=== PATIENT | female | born 1965 | race Caucasian/White ===

== ENCOUNTER 2021-02-27 06:15 | Day surgery (SDC) | payer BC, OTHER ==
[~2021-02-27 06:15] MED LIST: Morphine 8 MG, EPINEPHrine 0.3 MG, Cefuroxime 750 MG, Ketorolac 30 MG, Sodium Chloride ... PRN
--- NOTE | 2021-02-27 06:36 | PCM.PREANE ---
Preanesthetic Assessment - Procedure Proposed Procedure: Left total knee arthroplasty - Anesthesia/Transfusion/Family Hx Anesthesia History: Prior Anesthesia Without Reaction Family History of Anesthesia Reaction: No Transfusion History: No Prior Transfusion(s) - Review of Systems General: No Symptoms Pulmonary: No Symptoms Cardiovascular: No Symptoms Gastrointestinal: No Symptoms Neurological: No Symptoms - Physical Assessment NPO Status Date: 02/26/21 NPO Status Time: 00:00 Height: 1.7 m Weight: 85 kg ASA Class: 2 Mental Status: Alert & Oriented x3 Airway Class: Mallampati = 1 Dentition: Reports: Dentures (top) Thyro-Mental Finger Breadths: 3 Mouth Opening Finger Breadths: 3 ROM/Head Extension: Full Lungs: Clear to Auscultation, Normal Respiratory Effort Cardiovascular: Regular Rate, Regular Rhythm - Anesthesia Plan Pre-Op Medication Ordered: None - Acknowledgements Anesthesia Type Planned: Spinal Pt an Appropriate Candidate for the Planned Anesthesia: Yes Alternatives and Risks of Anesthesia Discussed w Pt/Guardian: Yes Pt/Guardian Understands and Agrees with Anesthesia Plan: Yes 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 Questionnaire 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 (See Below) Other OB/BYN History: tubal ligation, nivasure, monarch Neurological History: Reports: Migraines Other Neuro History: menieres disease - Past Surgical History HEENT Surgical History: Reports: Tonsillectomy Other Musculoskeletal Surgeries/Procedures:: bunionectomy, foot surgery - SUBSTANCE USE Tobacco Use Status *Q: Never Tobacco User Tobacco Use Within Last Twelve Months: No Second Hand Smoke Exposure: No Days Per Week of Alcohol Use: 0 Number of Drinks Per Day: 0 Total Drinks Per Week: 0 Recreational Drug Use History: No - HOME MEDS Home Medications: Home Meds Aspirin [Aspirin EC] 325 mg PO BID #60 tab 02/26/21 [Rx] Cholecalciferol (Vitamin D3) [Vitamin D] 1 tab PO DAILY 02/26/21 [History] Gabapentin [Neurontin] 300 mg PO DAILY 02/26/21 [History] Gabapentin [Neurontin] 600 mg PO BID 02/26/21 [History] Meclizine [Antivert] 50 mg PO DAILY 02/26/21 [History] oxyCODONE 5 - 10 mg PO Q4H PRN #40 tab 02/26/21 [Rx] - CURRENT (IN HOUSE) MEDS Current Meds: Current Medications Morphine Sulfate 8 mg/Epinephrine HCl 0.3 mg/Cefuroxime Sodium 750 mg/Ketorolac Tromethamine 30 mg/Sodium Chloride 7.9 ml 0 mg .XX ASDIRECTED PRN PRN Reason: Pain Stop: 02/27/21 14:00 Lactated Ringer's (Ringers, Lactated) 1,000 mls @ 125 mls/hr IV ASDIRECTED BETTIE Stop: 02/27/21 23:00 Lidocaine/Sodium Bicarbonate (Lidocaine 1%/Sod Bicarbonate In Ns 8.4% 1 Ml S yringe) 0.25 ml IDERM ONETIME PRN PRN Reason: Prior to IV Start Stop: 02/27/21 18:00 Sodium Chloride (Sodium Chloride 0.9% 10 Ml Syringe) 10 ml FLUSH ASDIRECTED PRN PRN Reason: Keep Vein Open Stop: 02/27/21 18:00 Discontinued Medications Tranexamic Acid (Tranexamic Acid 1,000 Mg/10 Ml Amp) Confirm Administered Dose 1,000 mg .ROUTE .STK-MED ONE Stop: 02/27/21 06:23 Vancomycin HCl (Vancomycin 1 Gm Sdv) Confirm Administered Dose 1 gm .ROUTE .STK- MED ONE Stop: 02/27/21 06:23
[2021-02-27] MEDS: Lactated Ringers 1,000 ML IV SCH ×2 (06:40→10:55)
[2021-02-27] MEDS ORDERED: Midazolam 1 MG/ML 2 ML SDV ONE (06:42)
[2021-02-27] MEDS ORDERED: Propofol 200 MG/20 ML SDV ONE ×3 (06:42→08:08)
[2021-02-27] MEDS ORDERED: fentaNYL 100 MCG/2 ML SDV ONE (06:42)
[2021-02-27] MEDS ORDERED: Ondansetron 4 MG/2 ML SDV ONE (06:42)
[2021-02-27] MEDS ORDERED: Lidocaine 1% 4 ML ONE (06:42)
[2021-02-27] MEDS ORDERED: ceFAZolin 1 GM Vial ONE (06:43)
[2021-02-27] MEDS ORDERED: Acetaminophen 325 MG Tab PO ONE (06:45)
[2021-02-27] MEDS ORDERED: Pregabalin 25 MG Cap PO ONE (06:46)
[2021-02-27] MEDS ORDERED: oxyCODONE ER 10 MG TAB.ER PO ONE (06:47)
[2021-02-27] MEDS ORDERED: Sodium Chloride 0.9% 10 ML Syringe FLUSH PRN (07:22)
[2021-02-27] MEDS ORDERED: Lidocaine 1%/Sod Bicarbonate in NS 8.4% 1 ML Syringe IDERM PRN (07:22)
[2021-02-27] MEDS ORDERED: Lactated Ringers 1,000 ML ONE (07:36)
[2021-02-27] MEDS ORDERED: ePHEDrine 50 MG/ML SDV ONE (07:52)
[2021-02-27] MEDS: Vancomycin 1 GM SDV ONE ×2 (08:15→08:22)
[2021-02-27] MEDS ORDERED: fentaNYL 100 MCG/2 ML SDV IVPUSH PRN (08:45)
--- NOTE | 2021-02-27 08:46 | PCM.POSTAN ---
POST ANESTHESIA ASSESSMENT - MENTAL STATUS Mental Status: Alert, Oriented - RESPIRATORY Respiratory Status: Respiratory Rate WNL, Airway Patent, O2 Saturation Stable - CARDIOVASCULAR CV Status: Pulse Rate WNL, Blood Pressure Stable - GASTROINTESTINAL GI Status: No Symptoms - PAIN Pain Score: 0 - POST OP HYDRATION Hydration Status: Adequate & Stable - OBSERVATIONS Free Text/Narrative:: no anesthesia complications noted
[2021-02-27] MEDS ORDERED: EPINEPHrine 1 MG/ML SDV ONE (08:49)
[2021-02-27] MEDS ORDERED: Ropivacaine 0.5% 5 MG/ML 30 ML SDV ONE (08:50)
--- NOTE | 2021-02-27 09:12 | PCM.SN.2 ---
- Free Text/Narrative Note: Left selective femoral nerve block at the adductor canal for post-procedure pain control under US guidance requested by Dr. Kaur. Time Out: 856 Start: 856 End: 901 Chart reviewed. Consent signed. Questions answered. Appropriate monitors applied. Time out performed. Left mid-shaft femur identified with ultrasound, scanning medially of femur, the femoral artery in the adductor canal visualized, and the femoral nerve located laterally to the artery. The skin was prepped lateral to the ultrasound probe with chlorahexadine times three. The 21ga 4 insulated block needle was inserted under direct ultrasound guidance into the adductor canal. 25mL of 0.5% ropivacaine with 1:200,000 epinephrine was injected circumferentially around the nerve with intermittent negative aspiration noted. Patient tolerated the procedure well. Sterile technique noted along with sterile gloves, mask, and sterile probe cover. See picture on progress note and vital signs on nurses notes. Block completed in PACU. Berhane Hyde CRNA
--- NOTE | 2021-02-27 10:46 | CR ---
Left knee: AP and lateral views of the left knee were obtained. Comparison: Prior left knee CT study of 02/12/21 and prior MRI left knee study of 07/18/19. Knee prosthesis is noted. Patellar prosthesis is also seen. Components are aligned. Underlying bony structure shows nothing acute. Soft tissue air is noted. Impression: 1. Satisfactory post-op radiographic appearance of recently placed left knee prostheses. Diagnostic code #2
[2021-02-27] MEDS ORDERED: oxyCODONE 5 MG Tab PO PRN (11:23)
--- NOTE | 2021-02-27 12:50 | PCM48HPAN ---
Post Anesthesia Note - EVALUATION WITHIN 48HRS OF ANESTHETIC Vital Signs in Normal Range: Yes Patient Participated in Evaluation: Yes Respiratory Function Stable: Yes Airway Patent: Yes Cardiovascular Function Stable: Yes Hydration Status Stable: Yes Pain Control Satisfactory: Yes Nausea and Vomiting Control Satisfactory: Yes Mental Status Recovered: Yes Vital Signs: Last Vital Signs Temp 98.4 C H 02/27/21 08:35 Pulse 58 L 02/27/21 12:00 Resp 17 02/27/21 12:00 BP 135/79 02/27/21 12:00 Pulse Ox 99 02/27/21 12:00 - COMMENTS/OBSERVATIONS Free Text/Narrative:: no anesthesia complications noted
--- NOTE | 2021-03-10 07:40 | PCM.OPNOTE ---
- General Post-Op/Procedure Note Date of Surgery/Procedure: 02/27/21 Operative Procedure(s): left total knee arthroplasty with [employer] Pre Op Diagnosis: left knee osteoarthrosis Post-Op Diagnosis: Same Anesthesia Technique: Local, MAC, Spinal Primary Surgeon: Theron Kaur Anesthesia Provider: Berhane Hyde Access Rn: Dayna Perla Access Rn: Tiffany Joyner EBL in mLs: 150 Complications: None Condition: Good Free Text/Narrative:: 3 femur 2 tibia 9mm 29x9
--- NOTE | 2021-03-11 08:00 | OR ---
DATE OF OPERATION: 02/27/2021 SURGEON: Theron Kaur MD OPERATION PERFORMED: Left total knee arthroplasty with [employer]. PREOPERATIVE DIAGNOSIS: Left knee osteoarthrosis. POSTOPERATIVE DIAGNOSIS: Left knee osteoarthrosis. ANESTHESIA: Local MAC with spinal. ANESTHESIA PROVIDER: Berhane Hyde. ASSISTANTS: Dayna Perla PA-C, and Tiffany Joyner LPN. ESTIMATED BLOOD LOSS: 150 mL. COMPLICATIONS: None. CONDITION: Stable. IMPLANT: 1. Ira size 3 press-fit CR femur. 2. Ira size 2 press-fit tibial baseplate. 3. Ira size 2, 9 mm CS polyethylene insert. 4. Ira size 29 x 9 mm press-fit asymmetric patella. DESCRIPTION OF PROCEDURE: The patient was identified in the preoperative holding area. Proper site was marked and identified by the surgeon. The patient was taken back to the operating theater where after adequate anesthesia, the patient's left lower extremity had a nonsterile tourniquet applied and it was then sterilely prepped and draped in the usual sterile fashion. OR time-out was performed. The patient received 2 g IV Ancef. At this time, left lower extremity was exsanguinated and tourniquet was insufflated to 250 mmHg. Standard anterior incision was made and medial parapatellar arthrotomy was created. Deep fibers of the MCL were raised and anterior fat pad was resected. Attention was turned to the patella. Patella was measured a 22 and was resected to a 13 for 29 x 9 mm patella. Drill holes were then drilled and found to have adequate bone. At this time, attention was turned to the femur. Two 4.0 Schanz pins were placed intra-incisionally in the femur for the [employer] robotic array. Two more were placed in the tibia 3 fingerbreadths below the tibial tubercle. The checkpoints were placed in the tibia and the femur. Hip center rotation was obtained. Medial and lateral malleoli were marked. The check points were then marked. At this time, 40 points were obtained off both the femur and the tibia for the [employer] robotic plan. The patient's knee was brought to full extension. Varus valgus stresses were applied for the medial and lateral gaps. This was then done in 90 degrees of flexion. The [employer] [place] robotic plan for this patient was then undertaken for symmetrical flexion and extension gaps. At this time, straight saw blade was brought out on with [employer] robotic arm. The tibial cut, the anterior cut, the anterior chamfer cut and the posterior femoral cut were completed. Saw blade was then switched. The distal femoral cut as well as posterior chamfer cuts were completed. All bony fragments were removed. Medial and lateral menisci were resected. Posterior osteophytes were removed. A size 2 trial tibial baseplate was placed. Size 3 trial femur was placed and a 9 mm trial spacer was placed. The patient's knee was brought into full extension. There was no varus-valgus instability. Patella was tracking centrally and good fit for all parts. At this time, the femoral drill holes were drilled. The tibia was stamped and drilled in the proper rotation. Implants were opened on the back table. The size 2 press-fit tibia was impacted into place. Size 3 press-fit femur was impacted into place and the size 9 mm polyethylene insert was impacted into place. The patient's knee was brought to full extension. The 29 x 9 mm press-fit patella was pressed into place. Tourniquet was deflated. Bleeders were cauterized. Periarticular injection was completed. 1 L of pulse lavage irrigation with Ancef was irrigated through the knee along with 400 mL Irrisept irrigation. Topical tranexamic acid and vancomycin powder were applied. #2 barbed suture was used for closure of the medial parapatellar arthrotomy. 2-0 Vicryl and Stratafix were used for subcutaneously and Prineo was used for skin closure. The patient tolerated the procedure well and was sent to the PACU in stable condition. MMODAL /[id number]
== END 2021-02-27 13:11 | disposition home or self-care (01) ==
LOC: JD.SDS 06:15
PROVIDERS: ATTEND Orthopaedic Surgery
DX: M17.12 Unilateral primary osteoarthritis, left knee (principal); G89.18 Other acute postprocedural pain; G43.909 Migraine, unspecified, not intractable, without status migrainosus; Z98.890 Other specified postprocedural states; Z79.899 Other long term (current) drug therapy; Z79.82 Long term (current) use of aspirin
CPT/HCPCS: 27447; 73560; 97116; 97161; A9270; C1713; C1776; J0171; J0690; J0697; J1885; J2250; J2270; J2405; J2704; J2795; J3010; J3370; J7120; 01402; 64450; 76942

== ENCOUNTER → 2021-06-12 | Day surgery (SDC) | payer BC ==
[~2021-06-12] MED LIST changes: +Lactated Ringers 1,000 ML IV SCH; +Lidocaine 1% 4 ML ONE; +Lidocaine 1%/Sod Bicarbonate in NS 8.4% 1 ML Syringe IDERM PRN; +Midazolam 1 MG/ML 2 ML SDV ONE; -Morphine 8 MG, EPINEPHrine 0.3 MG, Cefuroxime 750 MG, Ketorolac 30 MG, Sodium Chloride ... PRN; +Ondansetron 4 MG/2 ML SDV ONE; +Propofol 200 MG/20 ML SDV ONE; +Sodium Chloride 0.9% 10 ML Syringe FLUSH PRN; +fentaNYL 100 MCG/2 ML SDV ONE
--- NOTE | 2021-06-12 07:25 | PCM.PREANE ---
Preanesthetic Assessment - Procedure Proposed Procedure: screening colonoscopy - Anesthesia/Transfusion/Family Hx Anesthesia History: Prior Anesthesia Without Reaction Family History of Anesthesia Reaction: No Transfusion History: No Prior Transfusion(s) - Review of Systems General: No Symptoms Pulmonary: No Symptoms Cardiovascular: No Symptoms Gastrointestinal: No Symptoms Neurological: No Symptoms Other: Reports: None - Physical Assessment NPO Status Date: 06/12/21 NPO Status Time: 04:00 (rest of prep) Vital Signs: 141/69 78 98% 16 Height: 5 ft 7 in Weight: 85.7 kg ASA Class: 2 Mental Status: Alert & Oriented x3 Dentition: Reports: Dentures (top) Thyro-Mental Finger Breadths: 3 Mouth Opening Finger Breadths: 3 ROM/Head Extension: Full Lungs: Clear to Auscultation, Normal Respiratory Effort Cardiovascular: Regular Rate, Regular Rhythm - Allergies Allergies/Adverse Reactions: Allergies Allergy/AdvReac Type Severity Reaction Status Date / Time No Known Allergies Allergy Verified 06/11/21 15:49 - Blood Blood Available: No - Acknowledgements Anesthesia Type Planned: MAC Pt an Appropriate Candidate for the Planned Anesthesia: Yes Alternatives and Risks of Anesthesia Discussed w Pt/Guardian: Yes Pt/Guardian Understands and Agrees with Anesthesia Plan: Yes 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 Questionnaire Cardiovascular History: Reports: None Respiratory History: Reports: None Gastrointestinal History: Reports: None 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 (See Below) Other OB/BYN History: tubal ligation, nivasure, monarch Neurological History: Reports: Migraines Other Neuro History: menieres disease Psychiatric History: Reports: None Endocrine/Metabolic History: Reports: None Oncologic (Cancer) History: Reports: None - Past Surgical History HEENT Surgical History: Reports: Tonsillectomy Female Surgical History: Reports: Tubal Ligation, Other (See Below) (novasure and moncarch) Musculoskeletal Surgical History: Reports: Knee Replacement Other Musculoskeletal Surgeries/Procedures:: bunionectomy, foot surgery - SUBSTANCE USE Tobacco Use Status *Q: Never Tobacco User Tobacco Use Within Last Twelve Months: No Second Hand Smoke Exposure: No Days Per Week of Alcohol Use: 0 Recreational Drug Use History: No - HOME MEDS Home Medications: Home Meds Aspirin [Aspirin EC] 325 mg PO BID #60 tab 02/26/21 [Rx] Cholecalciferol (Vitamin D3) [Vitamin D] 1 tab PO DAILY 02/26/21 [History] Gabapentin [Neurontin] 300 mg PO DAILY 02/26/21 [History] Gabapentin [Neurontin] 600 mg PO BID 02/26/21 [History] Meclizine [Antivert] 50 mg PO DAILY 02/26/21 [History] oxyCODONE 5 - 10 mg PO Q4H PRN #40 tab 02/26/21 [Rx] - CURRENT (IN HOUSE) MEDS Current Meds: Current Medications Lactated Ringer's (Ringers, Lactated) 1,000 mls @ 125 mls/hr IV ASDIRECTED BETTIE Stop: 06/12/21 23:00 Lidocaine/Sodium Bicarbonate (Lidocaine 1%/Sod Bicarbonate In Ns 8.4% 1 Ml Syringe) 0.25 ml IDERM ONETIME PRN PRN Reason: Prior to IV Start Stop: 06/12/21 18:00 Sodium Chloride (Sodium Chloride 0.9% 10 Ml Syringe) 10 ml FLUSH ASDIRECTED PRN PRN Reason: Keep Vein Open Stop: 06/12/21 18:00 Discontinued Medications Fentanyl (Fentanyl 100 Mcg/2 Ml Sdv) Confirm Administered Dose 100 mcg .ROUTE .STK-MED ONE Stop: 06/12/21 07:01 Lidocaine HCl (Xylocaine-Mpf 1%) Confirm Administered Dose 4 mls @ as directed .ROUTE .STK-MED ONE Stop: 06/12/21 07:00 Midazolam HCl (Midazolam 1 Mg/Ml 2 Ml Sdv) Confirm Administered Dose 2 mg .ROUTE .STK-MED ONE Stop: 06/12/21 07:01 Propofol (Propofol 200 Mg/20 Ml Sdv) Confirm Administered Dose 400 mg .ROUTE .STK-MED ONE Stop: 06/12/21 07:01
--- NOTE | 2021-06-12 08:21 | PCM.PRNOTE ---
- Free Text/Narrative Note: Date: 06/12/2021 Procedure: screening colonoscopy History: normal screening 10 years ago Endoscopist: Jose Dudley MD Findings: prep was okay, with lots of bubbles. Cecum reached. One subcentimeter sessile polyp removed in sigmoid colon. Large external hemorrhoids. Few diverticula. Detailed Report: The patient was taken to the endoscopy suite and placed in left lateral decubitus position. Timeout was performed and monitored anesthesia care was initiated. On inspection of the anus, large external hemorrhoids were noted. Digital rectal exam was unremarkable. The colonoscope was inserted and advanced to the cecum with ease. The appendiceal orifice and ileocecal valve were well visualized. Prep was overall pretty good, but there was a lot of bubbling in the proximal colon making visualization less than optimal. Irrigation was used and mucosal surfaces were carefully inspected as the scope was slowly withdrawn. A few scattered diverticula were noted in the distal colon. And what appeared to be the mid sigmoid, a subcentimeter sessile polyp was identified. This was removed using hot snare. The specimen was successfully retrieved. On retroflexion within the rectum, minor internal hemorrhoidal disease was appreciated. Air was suctioned from the distal colon and rectum prior to withdrawal of the scope. The patient tolerated the procedure well.
--- NOTE | 2021-06-12 08:27 | PCM48HPAN ---
Post Anesthesia Note - EVALUATION WITHIN 48HRS OF ANESTHETIC Vital Signs in Normal Range: Yes Patient Participated in Evaluation: Yes Respiratory Function Stable: Yes Airway Patent: Yes Cardiovascular Function Stable: Yes Hydration Status Stable: Yes Pain Control Satisfactory: Yes Nausea and Vomiting Control Satisfactory: Yes Mental Status Recovered: Yes Vital Signs: Last Vital Signs Temp 98 F 06/12/21 07:15 Pulse 78 06/12/21 07:15 Resp 16 06/12/21 07:15 BP 141/69 H 06/12/21 07:15 Pulse Ox 97 06/12/21 07:15 0823 120/63 12 97.1 95% 64
== END | disposition home or self-care (01) ==
LOC: JD.SDS 07:08
PROVIDERS: ATTEND Surgery
DX: Z12.11 Encounter for screening for malignant neoplasm of colon (principal); D12.5 Benign neoplasm of sigmoid colon; K64.4 Residual hemorrhoidal skin tags; K57.30 Diverticulosis of large intestine without perforation or abscess without bleeding; G43.909 Migraine, unspecified, not intractable, without status migrainosus; Z79.899 Other long term (current) drug therapy; Z98.890 Other specified postprocedural states
CPT/HCPCS: 45385; J2250; J2405; J2704; J3010; J7120; 00812

== ENCOUNTER 2021-07-25 11:31 | Emergency (ER) | payer BC ==
--- NOTE | 2021-07-25 12:40 | US ---
Left lower extremity deep venous ultrasound: Duplex and color Doppler evaluation was obtained of the left common femoral, proximal greater saphenous, superficial femoral, popliteal, posterior tibial and peroneal veins. Right common femoral vein was also evaluated. Comparison: No prior venous imaging is available. Findings: Visualized veins show normal phasic flow, augmentation and compression. Impression: 1. No findings of deep venous thrombosis within the left lower extremity or within the right common femoral vein. Diagnostic code #1
--- NOTE | 2021-07-25 13:23 | EDM.PDOC ---
ED HPI GENERAL MEDICAL PROBLEM - General Chief Complaint: Lower Extremity Injury/Pain Stated Complaint: LT FOOT PAIN\SWOLLEN Time Seen by Provider: 07/25/21 11:38 Source of Information: Reports: Patient History Limitations: Reports: No Limitations - History of Present Illness INITIAL COMMENTS - FREE TEXT/NARRATIVE: 55-year-old female presents the emergency department with complaints of swelling from left knee to left foot. Patient is concerned that there may be a blood clot noted as she had a knee replacement 02/27/2021. She states she did fall May 2021 however does not recall injuring her knee. However, she did have Covid on June 23, 2021 which makes her more concerned regarding blood clots. She states that swelling has been noted for approximately the past month. She denies any pain to the back of her calf or redness or warmth. She states however her entire lower leg is sore and causing discomfort and she does have some limping associated with this. 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 She does have an appointment scheduled with Dr. Kaur on Wednesday, July 28, 2021. Left Knee Pain Score (Numeric/FACES): 6 - Related Data Allergies Allergy/AdvReac Type Severity Reaction Status Date / Time No Known Allergies Allergy Verified 06/12/21 07:37 Home Meds: Home Meds Cholecalciferol (Vitamin D3) [Vitamin D] 1 tab PO DAILY 02/26/21 [History] Gabapentin [Neurontin] 300 mg PO DAILY 02/26/21 [History] Gabapentin [Neurontin] 600 mg PO BID 02/26/21 [History] Meclizine [Antivert] 50 mg PO DAILY 02/26/21 [History] oxyCODONE 5 - 10 mg PO Q4H PRN #40 tab 02/26/21 [Rx] Zinc 1 tab PO DAILY 07/25/21 [History] Past Medical History Cardiovascular History: Reports: None Respiratory History: Reports: None Gastrointestinal History: Reports: None 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 (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 Below) Other OVERLAY OPERATOR History: tubal ligation, nivasure, monarch Neurological History: Reports: Migraines Other Neuro History: menieres disease Psychiatric History: Reports: None Endocrine/Metabolic History: Reports: None Oncologic (Cancer) History: Reports: None - Infectious Disease History Infectious Disease History: Reports: None - Past Surgical History HEENT Surgical History: Reports: Tonsillectomy Female Surgical History: Reports: Tubal Ligation, Other (See Below) Musculoskeletal Surgical History: Reports: Knee Replacement Other Musculoskeletal Surgeries/Procedures:: bunionectomy, foot surgery Social & Family History - Tobacco Use Tobacco Use Status *Q: Never Tobacco User - Caffeine Use Caffeine Use: Reports: Soda Other Caffeine Use: drinks protein shake with fiz stick as energy suppliment - Recreational Drug Use Recreational Drug Use: No Review of Systems - Review of Systems Review Of Systems: Comprehensive ROS is negative, except as noted in HPI. ED EXAM, GENERAL - Physical Exam Exam: See Below Exam Limited By: No Limitations General Appearance: Alert, WD/WN, No Apparent Distress Ears: Normal External Exam, Hearing Grossly Normal Nose: Normal Inspection Throat/Mouth: Normal Inspection, Normal Lips, Normal Voice, No Airway Compromise Head: Atraumatic Neck: Normal Inspection, Supple Respiratory/Chest: No Respiratory Distress, Lungs Clear, Normal Breath Sounds, No Accessory Muscle Use, Chest Non-Tender Cardiovascular: Normal Peripheral Pulses, Regular Rate, Rhythm. No: No Edema (2+ pitting edema noted from knee to foot on left lower extremity) Peripheral Pulses: 2+: Dorsalis Pedis (L), Dorsalis Pedis (R) GI/Abdominal: Normal Bowel Sounds, No Distention (Female) Exam: Deferred Rectal (Female) Exam: Deferred Back Exam: Normal Inspection Extremities: Normal Range of Motion, Non-Tender, Normal Capillary Refill, Pedal Edema (2+ pitting edema noted to left lower extremity) Neurological: Alert, Oriented, Normal Cognition Psychiatric: Normal Affect, Normal Mood Skin Exam: Warm, Dry, Intact, Normal Color, Rash (Area of dry skin that is slightly reddened noted to left medial ankle) Lymphatic: No Adenopathy Course - Vital Signs Text/Narrative:: As stated above, patient presents with swelling noted to the left lower extremity. At the time of my exam, patient is hemodynamically stable and not tachycardic. O2 saturations are 86% on room air. Exam does reveal 2+ pitting edema noted from right knee down to the foot. I do not appreciate any redness or warmth. However, patient does have an area of dry skin noted to the left medial ankle area that she states is itchy. Homans' sign is negative. Will obtain an ultrasound of the left lower extremity to rule out DVT. Last Recorded V/S: Last Vital Signs Temp 96.9 F 07/25/21 11:46 Pulse 70 07/25/21 11:46 Resp 20 07/25/21 11:46 BP 182/80 H 07/25/21 11:46 Pulse Ox 96 07/25/21 11:46 - Orders/Labs/Meds Orders: Active Orders 24 hr Category Date Time Status DME for Discharge [COMM] Stat Oth 07/25/21 13:12 Ordered - Re-Assessments/Exams Free Text/Narrative Re-Assessment/Exam: 07/25/21 13:33 Radiologist impression left lower extremity deep venous ultrasound: 1. No findings of deep venous thrombosis within the left lower extremity or within the right common femoral vein. Patient will be discharged home with Paolo stockings to decrease swelling. As stated previous she does have an appointment scheduled to see Dr. Kaur, orthopedic surgeon on Wednesday, July 28, 2021. Departure - Departure Time of Disposition: 13:20 Disposition: Home, Self-Care 01 Condition: Good Clinical Impression: Swelling of left lower extremity - Discharge Information Referrals: Marie Burnham MD [Primary Care Provider] - Forms: ED Department Discharge Additional Instructions: Were seen in the emergency department with swelling noted to your left lower leg. Ultrasound was completed and there is no findings of a blood clot in your leg. Swelling could be due to lymphedema as discussed however recommend that you follow-up with Dr. Kaur for further evaluation. You were given Paolo stockings to wear. These should help to decrease the swelling. Recommend putting them on first thing in the morning and taking them off just before bed at nighttime. May apply Eucerin cream to the area of dry itchy skin twice daily. Wash the area with mild soapy water such as Dial or Juan's baby shampoo. Should your condition worsen or change, do not hesitate returning to the emergency department. Sepsis Event Note (ED) - Focused Exam Vital Signs: Vital Signs Temp Pulse Resp BP Pulse Ox 07/25/21 11:46 96.9 F 70 20 182/80 H 96 - My Orders Last 24 Hours: My Active Orders 07/25/21 13:12 DME for Discharge [COMM] Stat - Assessment/Plan Last 24 Hours: My Active Orders 07/25/21 13:12 DME for Discharge [COMM] Stat
== END 2021-07-25 14:33 | disposition home or self-care (01) ==
LOC: JD.ED 11:31
DX: M79.89 Other specified soft tissue disorders (principal)
CPT/HCPCS: 93971-26-LT; 93971-LT; 99283-25